=== PATIENT | female | born 1990 | race African-American/Black ===

== ENCOUNTER 2018-01-15 08:38 | Emergency (ER) | payer OTHER ==
[2018-01-15 09:39] LABS: ALT (SGPT) 26 U/L (8-55); AST (SGOT) 20 U/L (5-34); Albumin 4.1 g/dL (3.5-5.0); Alkaline Phosphatase 57 U/L (40-150); Anion Gap 13 mmol/L (10-20); BUN (Urea Nitrogen) 11 mg/dL (7.0-18.7); Bilirubin, Total 0.6 mg/dL (0.2-1.2); Calc. Creatinine Clearance 0 mL/min (70-130); Calcium 9.4 mg/dL (7.8-10.44); Carbon Dioxide 23 mmol/L (22-29); Chloride 108 mmol/L (98-107); Estimated GFR-MDRD Greater than 90; Globulin 3.5 g/dL (2.4-3.5); Glucose 79 mg/dL (70-105); Potassium 4.2 mmol/L (3.5-5.1); Protein, Total 7.6 g/dL (6.0-8.3); Sodium 140 mmol/L (136-145)
[2018-01-15 09:40] LABS: #Basophils 0.1 thou/uL (0.0-0.2); #Eosinphils 0.1 thou/uL (0.0-0.7); #Lymphocytes 2.2 thou/uL (1.20-3.40); #Monocytes 0.5 thou/uL (0.11-0.59); #Neutrophils 4.3 thou/uL (1.40-6.50); %Eosinophils 1.7 % (0.0-10.0); %Lymphocytes 30.9 % (21.0-51.0); %Monocytes 6.2 % (0.0-10.0); %Neutrophils 59.3 % (42.0-75.0); CKMB 1.5 ng/mL (0-6.6); Mean Corpuscular HGB CONC 35.3 g/dL (32.0-36.0); Mean Corpuscular Hemoglobin 29.4 pg (27.0-31.0); Mean Corpuscular Volume 83.3 fL (78.0-98.0); Mean Platelet Volume 7.4 fL (7.4-10.4); Platelet Count 248 thou/uL (130-400); RBC Distribution Width 10.8 % (11.5-14.5); Red Blood Cell (RBC) Count 5.09 mill/uL (4.20-5.40); Troponin I Less than 0.010 ng/mL (< 0.028); White Blood Cell (WBC) Count 7.3 thou/uL (4.8-10.8)
[2018-01-15] MEDS ORDERED: Ketorolac Tromethamine 30 MG/ML VIAL ONE (10:12)
[2018-01-15] MEDS ORDERED: Ibuprofen 200 MG TAB ONE (10:22)
--- NOTE | 2018-01-15 19:13 | RAD ---
PORTABLE CHEST: 01/15/18 No prior films were available for comparison. The heart is normal in size for an AP film and body hab itus. There is no vascular congestion, edema, or pleural effusion. The mediastinum appears normal and the trachea is midline. The bony structures appear normal. IMPRESSION: No acute thoracic findings. POS: HOME
== END 2018-01-15 10:30 | disposition home or self-care (01) ==
LOC: BURERS 08:38
DX: R07.89 Other chest pain (principal)
CPT/HCPCS: 36415; 71045; 80053; 82553; 83690; 84484; 85025; 93005; 96372; J1885

== ENCOUNTER 2018-05-20 18:00 | Emergency (ER) | payer OTHER ==
[2018-05-20 20:23] LABS: #Eosinphils 0.1 thou/uL (0.0-0.7); #Lymphocytes 1.5 thou/uL (1.20-3.40); #Monocytes 0.5 thou/uL (0.11-0.59); #Neutrophils 3.7 thou/uL (1.40-6.50); %Basophils 0.8 % (0.0-1.0); %Eosinophils 1.9 % (0.0-10.0); %Lymphocytes 25.8 % (21.0-51.0); %Monocytes 8.8 % (0.0-10.0); %Neutrophils 62.7 % (42.0-75.0); Hemoglobin 15.4 g/dL (12.0-16.0); Mean Corpuscular HGB CONC 33.9 g/dL (32.0-36.0); Mean Corpuscular Hemoglobin 30.1 pg (27.0-31.0); Mean Corpuscular Volume 88.8 fL (78.0-98.0); Mean Platelet Volume 8.3 fL (7.4-10.4); Platelet Count 249 thou/uL (130-400); RBC Distribution Width 11.1 % (11.5-14.5); Red Blood Cell (RBC) Count 5.11 mill/uL (4.20-5.40); White Blood Cell (WBC) Count 5.8 thou/uL (4.8-10.8)
[2018-05-20 20:33] LABS: BHCG - Serum Negative (NEGATIVE); Pregs Control Background? CLEAR/WHITE (CLR/WHITE); Pregs Control Bar Appear? YES (CONTROL BAR)
[2018-05-20 20:40] LABS: ALT (SGPT) 27 U/L (8-55); AST (SGOT) 19 U/L (5-34); Alkaline Phosphatase 62 U/L (40-150); Anion Gap 10 mmol/L (10-20); BUN (Urea Nitrogen) 8 mg/dL (7.0-18.7); Bilirubin, Total 0.6 mg/dL (0.2-1.2); Calc. Creatinine Clearance 0 mL/min (70-130); Calcium 9.1 mg/dL (7.8-10.44); Carbon Dioxide 26 mmol/L (22-29); Chloride 104 mmol/L (98-107); Estimated GFR-MDRD Greater than 90; Globulin 3.4 g/dL (2.4-3.5); Glucose 83 mg/dL (70-105); Lipase 34 U/L (8-78); Potassium 3.6 mmol/L (3.5-5.1); Protein, Total 7.4 g/dL (6.0-8.3); Sodium 136 mmol/L (136-145)
[2018-05-20] MEDS ORDERED: Dicyclomine 20 MG TAB ONE (20:48)
[2018-05-20] MEDS ORDERED: Famotidine 20 MG TAB ONE (20:48)
--- NOTE | 2018-05-20 23:18 | CT ---
CT ABDOMEN AND PELVIS WITH CONTRAST 05/20/[address] of the abdomen and pelvis was performed for evaluation of right upper quadrant pain. Axial slices were acquired, then coronal and sagittal reconstructions were done. The lung bases are clear. The liver, spleen, gallbladder, pancreas, adrenal glands, kidneys, and abdo naila aorta all appear normal. There were no right upper quadrant findings to explain the patient's p ain. The gallbladder was not abnormally distended nor was there any wall thickening. The bowel was unremarkable. The appendix appears normal. There is no free air or free fluid noted. CT of the pelvis showed no pelvic masses, fluid collections, or inflammatory changes. An IUD was note d in place. No lumbar issues of concern were seen. IMPRESSION: No significant abdominal or pelvic findings. POS: HOME
== END 2018-05-20 21:22 | disposition home or self-care (01) ==
LOC: BURERS 18:00
DX: R10.11 Right upper quadrant pain (principal); R10.13 Epigastric pain
CPT/HCPCS: 74177; 80053; 83690; 84703; 85025